=== PATIENT | male | born 1980 | race Caucasian/White ===

== ENCOUNTER 2023-01-08 17:12 | Emergency (ER) | payer OTHER ==
[2023-01-08] MEDS: Acetaminophen/HYDROcodone 325-10 MG Tab PO ONE (19:18)
[2023-01-08] MEDS: Take Home: Acetaminophen/oxyCODONE 325-5 MG, 5 Tab Pack PO ONE (19:30)
== END 2023-01-08 19:45 | disposition home or self-care (01) ==
LOC: VM.ED 17:12
DX: S92.352A Displaced fracture of fifth metatarsal bone, left foot, initial encounter for closed fracture (principal); S92.324A Nondisplaced fracture of second metatarsal bone, right foot, initial encounter for closed fracture; Z87.891 Personal history of nicotine dependence; W10.8XXA Fall (on) (from) other stairs and steps, initial encounter
CPT/HCPCS: 73630-50; 99283; A9270-GY

== ENCOUNTER 2023-09-15 09:21 | Emergency (ER) | payer OTHER ==
[2023-09-15] MEDS: Tetracaine HCl/PF 0.5% 4 ML Bottle EYELF ONE (09:42)
[2023-09-15] MEDS: Fluorescein 1 MG Ophth Strip EYELF ONE (09:42)
== END 2023-09-15 10:08 | disposition home or self-care (01) ==
LOC: VM.ED 09:21
DX: S05.02XA Injury of conjunctiva and corneal abrasion without foreign body, left eye, initial encounter (principal); X58.XXXA Exposure to other specified factors, initial encounter
CPT/HCPCS: 99282; J3490